=== PATIENT | female | born 1975 | race Two or more races ===

== ENCOUNTER 2019-06-24 16:02 | Emergency (ER) | payer MEDICAID ==
[~2019-06-24] VITALS: Ht 162.6 cm; Wt 64.5 kg
[2019-06-24 16:50] VITALS: BP 122/59
== END 2019-06-24 18:34 | disposition home or self-care (01) ==
LOC: ER 16:02
DX: S50.01XA Contusion of right elbow, initial encounter (principal); M25.551 Pain in right hip; D57.1 Sickle-cell disease without crisis; V18.0XXA Pedal cycle driver injured in noncollision transport accident in nontraffic accident, initial encounter; Y93.55 Activity, bike riding; Y92.89 Other specified places as the place of occurrence of the external cause
CPT/HCPCS: 73080; 99283

== ENCOUNTER 2024-02-14 10:49 | Emergency (ER) | payer MEDICAID ==
[~2024-02-14] VITALS: Ht 162.6 cm; Wt 74.0 kg
[2024-02-14 10:57] VITALS: O2SAT 99
[2024-02-14] MEDS: MAGNESIUM HYDROXIDE 400MG/5ML 30ML UDC PO ONE (11:45)
[2024-02-14] MEDS ORDERED: NA PHOS,M-B/NA PHOS,DI-BA ENEMA 118ML PR ONE (11:45)
[2024-02-14 12:08] LABS: BASOPHILS % 2.4 % (0.0-2.0); EOSINOPHILS % 1.9 % (0.0-5.0); HEMATOCRIT. 38.4 % (36.0-48.0); HEMOGLOBIN. 12.5 g/dL (12.0-16.0); LYMPHOCYTES % 34.9 % (20.0-50.0); MEAN CORPUSCULAR HGB CONC 32.6 g/dL (31.0-37.0); MEAN PLATELET VOLUME 8.2 fl (7.4-10.4); MONOCYTES % 8.3 % (2.0-8.0); NEUTROPHILS % 52.5 % (40.0-76.0); PLATELET 259 x1000/uL (130-400); RED BLOOD CELL COUNT 4.17 mill/uL (4.2-5.4); RED CELL DISTRIBUTION WIDTH 14.4 % (11.6-14.6)
[2024-02-14 12:17] LABS: POTASSIUM 3.6 mEq/L (3.5-5.1)
[2024-02-14 12:18] LABS: CALCIUM 9.4 mg/dL (8.7-10.4)
[2024-02-14 12:28] LABS: HCG SCREEN NEGATIVE
[2024-02-14 12:30] LABS: CLARITY URINE CLEAR (CLEAR); COLOR URINE YELLOW (YELLOW); GLUCOSE URINE NEGATIVE (NEGATIVE); KETONES URINE NEGATIVE (NEGATIVE); LEUKOCYTE ESTERASE URINE TRACE (NEGATIVE); NITRITE URINE NEGATIVE (NEGATIVE); OCCULT BLOOD URINE NEGATIVE (NEGATIVE); PROTEIN URINE NEGATIVE (NEGATIVE); SPECIFIC GRAVITY URINE 1.004 (1.005-1.030); UROBILINOGEN URINE 0.2 E.U./dL (0.2-1.0)
[2024-02-14 13:07] LABS: BACTERIA URINE 1+; RBC URINE 0-2 /hpf (0-2); SQUAMOUS EPITHELIAL CELL URINE 1+ /lpf (RARE/1+); WBC URINE 0-2 /hpf (0-2); YEAST URINE NONE SEEN
[2024-02-14] MEDS ORDERED: DOCU-138 MT (14:16)
[2024-02-14 14:53] VITALS: BP 135/75; PULSE 67; RESP 16; TEMP 36.61404; O2SAT 99
== END 2024-02-14 14:55 | disposition home or self-care (01) ==
LOC: ER 10:49
DX: K59.00 Constipation, unspecified (principal)
CPT/HCPCS: 36415; 74176; 80048; 81003; 81025; 84703; 85025; 99284